=== PATIENT | female | born 1980 | race Caucasian/White ===

== ENCOUNTER → 2022-07-13 12:58 | Outpatient (BNVA) | payer OTHER, SELFPAY | PROVIDERS: PCP Physician Assistant; Visit Provider Nurse Practitioner Family | DX: M54.2 Cervicalgia (principal); M25.512 Pain in left shoulder; G43.709 Chronic migraine without aura, not intractable, without status migrainosus; M79.7 Fibromyalgia; E53.8 Deficiency of other specified B group vitamins; F31.9 Bipolar disorder, unspecified; F17.200 Nicotine dependence, unspecified, uncomplicated | CPT/HCPCS: 99202 ==

== ENCOUNTER 2023-03-14 07:57 | Outpatient (AMB) | payer MEDICAID, SELFPAY ==
--- NOTE | 2023-03-14 08:01 | A.OFFVIS_ITS ---
Intake Vital Signs 03/14/23 08:06 Height 5 ft 5 in Weight 175 lb BMI 29.1 BP 106/88 Blood Pressure Location Rt brachial Position Sitting Pulse 81 Pulse Source Pulse Oximeter Pulse Oximetry (%) 98 Oxygen Delivery Method Room Air Intake Visit Reasons: f/u appt for re-occurring migraines-Confirmed Intake Note: Patient presents for follow up migraines. Patient states The headaches used to come and go fast but now I get them all the time and they last very long and I cant get rid of them, I have no medications. Bobbin Drier Required: Yes Allergies No Known Allergies Allergy (Verified 03/14/23 08:03) Medication List - Last Reconciled 03/14/23 by KALA Saez baclofen 10 mg PO BEDTIME 30 days bupropion HCl 150 mg PO QAM ibuprofen 600 mg PO TID PRN levonorgestrel (Liletta) 0 device intrauterine magnesium oxide 400 mg PO BEDTIME 30 days omeprazole 20 mg PO QAM prazosin 3 mg PO BEDTIME riboflavin (vitamin B2) 400 mg PO DAILY 30 days risperidone 2 mg PO QPM sumatriptan succinate 50 - 100 mg orally at onset of headache, may repeat in 2 hrs PRN; max 2 tabs per day or 4 tabs/week (may take with Ibuprofen) 30 days topiramate 25 mg PO BID trazodone 100 mg PO BEDTIME HPI HPI Comments History of Present Illness Details 42-yr-old female presents for f/u visit. In October, pt underwent a left shoulder rotator cuff repair. Pt reports she has had an increase in her usual migraine- was occurring once or twice a week, but now occurring almost every other day to every day. She states she has run out of all her migraine medication. She states Topiramate- was ineffective and not tolerated. Reviewed Mikey Palomares DISPLAY SCREEN FABRICATOR's notes from 2019- pt was tried on Gabapentin- ineffective. COUNT INCLUDES THE [facility] Medical History (Updated 07/13/22 @ 16:59 by KALA Saez) Osteoarthritis of knees, bilateral Vitamin B 12 deficiency PTSD (post-traumatic stress disorder) History of Helicobacter pylori infection Tendonitis of left rotator cuff Alopecia PRINCE positive Fibromyalgia Bipolar 1 disorder Depression Surgical History (Updated 03/14/23 @ 08:05 by HARIS Hayward) H/O shoulder surgery S/P laparoscopic sleeve gastrectomy Social History Alcohol intake: never Patient Tobacco Use Status: Current everyday Tobacco user Review of Systems Const All systems reviewed & are unremarkable except as noted in HPI and below Physical Exam Vital Signs: Last Vital Signs Pulse 81 03/14/23 08:06 BP 106/88 03/14/23 08:06 Pulse Ox 98 03/14/23 08:06 Oxygen Delivery Method Room Air 03/14/23 08:06 BMI result Body Mass Index 29.1 Const General: cooperative and no acute distress Orientation/consciousness: patient oriented x3 HEENT Head: Yes normocephalic Resp Effort & Inspection: normal respiratory effort and able to speak in complete sentences Neuro General: patient oriented x3, gait normal and CN's II-XI intact bilaterally Cognition (Neuro): normal cognition Motor exam (neuro): 5/5 motor strength present throughout Psych Appearance: grossly normal Mental Status: mental status grossly normal Speech and movement: Normal speech and movement present Affect: normal affect Attitude: cooperative Thought process: Normal thought process present Thought content: Normal thought content present Insight: Good insight present (Psych) Judgement: Good judgement present (Psych) Assessment & Plan Assessment & Plan (1) Chronic migraine without aura: Code(s): G43.709 - Chronic migraine without aura, not intractable, without status migrainosus (2) Cervicalgia: Code(s): M54.2 - Cervicalgia Plan For overall headache management: Track headaches and response to medications. ? For acute headache treatment: Resume Sumatriptan. May adjunct w/ Ibuprofen 600mg. May use Baclofen 10mg qhs prn headache/neck pain Previous acute migraine medication trials: Unsure Acute migraine medication contraindications: Unsure ? For headache prevention medication: Resume Riboflavin 400mg qam Resume Magnesium 400mg qhs Stop Topiramate. Trial low dose Propranolol 10mg bid- hold for lightheadedness. Previous migraine prevention medication trials: Gabapentin- ineffective, Topiramate- ineffective and not tolerated. Migraine prevention medication contraindications: TCAs/antidepressants d/t b ipolar dx Future considerations- CGRP MaB, ? f/u in 2-3 months or sooner prn. Medications: New propranolol hold for lightheadedness 10 mg PO BID 30 days 60 tabs 1RF Refilled magnesium oxide may hold for loose stools 400 mg PO BEDTIME 30 days 30 tabs 6RF sumatriptan succinate (0.5 - 1 x 100 mg) 50 - 100 mg orally at onset of headache, may repeat in 2 hrs PRN; max 2 tabs per day or 4 tabs/week (may take with Ibuprofen) 30 days 12 tabs 6RF migraine headache riboflavin (vitamin B2) 400 mg PO DAILY 30 days 30 tabs 6RF Coding Level of Care Code Est Pt Level 4 (32598) Diagnoses Chronic migraine without aura G43.709 Cervicalgia M54.2
[2023-03-14 08:06] VITALS: BP 106/88; PULSE 81; O2SAT 98; BMI 29.1
== END 2023-03-14 08:41 | disposition home or self-care (01) ==
PROVIDERS: PCP Physician Assistant; Visit Provider Nurse Practitioner Family
DX: G43.709 Chronic migraine without aura, not intractable, without status migrainosus (principal); M54.2 Cervicalgia
CPT/HCPCS: 99214

== ENCOUNTER → 2023-03-14 07:57 | Outpatient (BNVA) | payer MEDICAID, SELFPAY | PROVIDERS: PCP Physician Assistant; Visit Provider Nurse Practitioner Family | DX: G43.709 Chronic migraine without aura, not intractable, without status migrainosus (principal); M54.2 Cervicalgia | CPT/HCPCS: 99212 ==

== ENCOUNTER 2023-06-17 14:39 | Emergency (ER) | payer MEDICAID, SELFPAY ==
--- NOTE | ~2023-06-17 | XR_ITS ---
EXAMINATION: XR SHOULDER, LEFT CLINICAL INFORMATION: Status post rotator cuff repair. COMPARISON: None available. TECHNIQUE: AP external rotation, Grashey, scapular Y, and axillary views of the left shoulder. FINDINGS: The bones and soft tissues are normal. No fracture. Glenohumeral and acromioclavicular alignment is anatomic with normal joint space. No abnormal soft tissue calcifications. XR/XR shoulder LT min 2V IMPRESSION: Unremarkable left shoulder exam
[2023-06-17 15:05] VITALS: BP 110/61; PULSE 75; RESP 18; TEMP 36.2; O2SAT 100; BMI 29.3
--- NOTE | 2023-06-17 15:05 | ED.EXTPRO ---
HPI - Extremity Problem General Chief complaint: Extremity Injury, Upper Stated complaint: l shoulder pain surgery 6 mos ago Time Seen by Provider: 06/17/23 15:28 Source: patient and family (daughter) Mode of arrival: ambulatory Limitations: no limitations History of Present Illness HPI Narrative: 42 year-old assigned female at with a history of left rotator cuff injury and repair arrives to emergency department with a complaint of left shoulder pain worsening over the last 3 days since 06/14/2023. She states that 6 months ago in December 2022 she had a rotator cuff repair done by Dr. Chance through [facility]. She was receiving physical therapy after the surgery until 1.5 months ago in April 2023. She states her physical therapist told her she no longer needed to be seen by PT. She describes shooting pain up her neck and down her arm. She denies numbness and tingling. She reports her muscle relaxer ran out a few days ago. She tried taking NSAIDs and acetaminophen, and using a heat pad with no relief. The pain improves with rest and immobilization. She states movement of her shoulder aggravates the pain. She denies any recent falls or traumatic incident. The patient denies fever, chills, night sweats, lightheadedness, dizziness, chest pain, palpitations, shortness of breath, trouble breathing, abdominal pain, nausea, vomiting, melena and hematochezia, changes in bowel movements, painful urination, urinary frequency, hematuria, and changes in urination. Onset (ago): day(s) (3 days) Pain Consistency: constant Location: left and upper extremity (left shoulder) Quality: other (shooting) Relieving factors: immobilization and rest Exacerbating factors: range of motion (pain on abduction with passive and active range of motion ) Associated symptoms: denies other symptoms Related Data Home Medications Medication Instructions Recorded Confirmed bupropion HCl 150 mg 24 hr tablet, 150 mg PO QAM 07/13/22 03/14/23 extended release ibuprofen 600 mg tablet 600 mg PO TID PRN pain 07/13/22 03/14/23 levonorgestrel 20.4 mcg/24 hrs (8 0 device intrauterine 07/13/22 03/14/23 yrs) 52 mg intrauterine device (Liletta) omeprazole 20 mg capsule,delayed 20 mg PO QAM 07/13/22 03/14/23 release prazosin 1 mg capsule 3 mg PO BEDTIME 07/13/22 03/14/23 risperidone 2 mg tablet 2 mg PO QPM 07/13/22 03/14/23 topiramate 25 mg tablet 25 mg PO BID 07/13/22 07/13/22 trazodone 100 mg tablet 100 mg PO BEDTIME 07/13/22 03/14/23 Previous Rx's Medication Instructions Recorded baclofen 10 mg tablet 10 mg PO BEDTIME 30 days #30 tabs 07/13/22 magnesium oxide 400 mg (241.3 mg 400 mg PO BEDTIME 30 days #30 tabs 03/14/23 magnesium) tablet propranolol 10 mg tablet 10 mg PO BID 30 days #60 tabs 03/14/23 riboflavin (vitamin B2) 400 mg 400 mg PO DAILY 30 days #30 tabs 03/14/23 tablet sumatriptan succinate 100 mg tablet 50 - 100 mg (0.5 - 1 x 100 mg) PO 03/14/23 .COMPLEX PRN migraine headache 30 days #12 tabs cyclobenzaprine 5 mg tablet 5 mg PO TID PRN muscle spasm 7 06/17/23 days #21 tabs Allergies Allergy/AdvReac Type Severity Reaction Status Date / Time No Known Allergies Allergy Verified 06/17/23 15:05 Review of Systems Constitutional: Constitutional: Reports no additional constitutional complaints, Denies chills, Denies fever(s) and Denies night sweats Eyes: Eyes: Reports no additional eye complaints, Denies blurry vision, Denies change in vision, Denies diplopia, Denies eye discharge, Denies loss of vision and Denies eye pain ENT: Denies dizziness Cardiovascular: Cardiovascular: Reports no additional cardiovascular complaints, Denies chest pain, Denies lightheadedness, Denies Loss of Consciousness and Denies dyspnea Respiratory: Respiratory: Reports no additional respiratory complaints and Denies dyspnea Gastrointestinal: Gastrointestinal: Reports no additional gastrointestinal complaints, Denies abdominal pain, Denies melena, Denies hematochezia, Denies change in bowel habits and Denies change in stool character Genitourinary: Genitourinary: Denies hematuria, Denies urinary frequency, Denies dysuria, Denies urinary incontinence, Denies urinary hesitancy and Denies urinary urgency Musculoskeletal: Musculoskeletal: Reports no additional musculoskeletal complaints, Denies numbness and Denies tingling Comments: left shoulder pain Neurologic: Denies dizziness, Denies loss of vision, Denies numbness and Denies tingling Psychiatric: Psychiatric: Reports no additional psychiatric complaints Endocrine: Endocrine: Reports no additional endocrine complaints Hematologic/Lymphatic: Hematologic/Lymphatic: Reports no additional hematologic/lymphatic complaints Allergic/Immunologic: Allergic/Immunologic: Reports no additional allergic/immunologic complaints PMFSH Past Medical History Attestation statement: The following information was validated with the patient. (patient's daughter validated all information) Source: old records reviewed, obtained from family (patient's daughter provided additional history and confirmed the history provided by the patient.) and nursing notes reviewed Onset Date is defined in the Problem List Problems that require an onset date and time if occurred within 24 hrs of arrival to the ED Aortic Dissection and Rupture; Neurologic impairment; Cardiopulmonary Arrest; Endotracheal Intubation; Insertion or Replacement of Mechanical Circulatory Assist Device Medical History Osteoarthritis of knees, bilateral Vitamin B 12 deficiency PTSD (post-traumatic stress disorder) History of Helicobacter pylori infection Tendonitis of left rotator cuff Alopecia PRINCE positive Fibromyalgia Bipolar 1 disorder Depression Surgical History H/O shoulder surgery S/P laparoscopic sleeve gastrectomy Social History Social History Alcohol intake: never Patient Tobacco Use Status: Current everyday Tobacco user Advance Directives: No Advance Directives Information Provided: Yes Physical Exam Vital Signs: Vital Signs: Last Vital Signs Temp 97.1 F 06/17/23 15:05 Pulse 75 06/17/23 15:05 Resp 18 06/17/23 15:05 BP 110/61 06/17/23 15:05 Pulse Ox 100 06/17/23 15:05 O2 Del Method Room Air 06/17/23 15:05 BMI result Body Mass Index 29.3 Const: General: cooperative, no acute distress, alert and awake Nutritional Appearance: well nourished Orientation/consciousness: patient oriented x3 Limitations: no limitations HEENT: Head: Yes normal to inspection and Yes atraumatic Ears: hearing grossly normal bilaterally and external ears normal General nose exam: Normal external nose present, no nasal discharge noted and no epistaxis Face and sinus: Yes normal facial exam, No abrasion and No laceration Mouth: Normal oral and palatal mucosa present, no drooling and no muffled voice Eyes: General: appearance normal, both eyes and all related structures Periorbital: periorbital findings normal Eyelids: Yes eyelids normal Conjunctivae: conjunctivae normal Pupils: Equal, round and reactive pupils present EOM: EOMs intact bilaterally Neck: Neck: Yes normal visual inspection, Yes full ROM and Yes no lymphadenopathy Chest: Chest palpation & inspection: normal inspection of the chest Resp: Effort & Inspection: normal respiratory effort and able to speak in complete sentences GI: Inspection: Yes normal to inspection Neuro: General: patient oriented x3 and moves all extremities Cranial nerves: Yes Equal, round and reactive pupils present Cognition (Neuro): normal cognition Motor exam (neuro): 5/5 motor strength present throughout Sensory Exam: Normal double simultaneous stimulation for sensation Coordination: [id number] test normal Extrem: Other: pain with left shoulder ROM General: Yes normal to inspection and Yes capillary refill normal Psych: Appearance: grossly normal Mental Status: mental status grossly normal Affect: normal affect Attitude: cooperative Thought process: Normal thought process present Thought content: Normal thought content present Insight: Good insight present (Psych) Course Course Course Narrative: RME:?42 yo female w/ hx of bipolar 1 disorder, migraine w/o aura, cervicalgia, rotator cuff tear s/p surgical repair 7 mo ago here with left shoulder pain. Tried contacting [facility] orthopedic surgeon who stated that the pain was likely d/t not being in PT for a while. has been taking pain medication at home however cannot recall the name. no numbness/tingling/weakness of LUE. plan for xrays Full HPI, ROS and PE to be performed by the primary ED provider. Medications Administered Discontinued Medications Generic Name Dose Route Start Last Admin Trade Name Freq PRN Reason Stop Dose Admin Cyclobenzaprine HCl 5 mg 06/17/23 16:38 06/17/23 17:08 Cyclobenzaprine Hcl 5 Mg Tablet PO 06/17/23 16:39 5 mg ONCE ONE Administration Ketorolac Tromethamine 15 mg 06/17/23 16:38 06/17/23 17:08 Ketorolac Tromethamine 15 Mg/Ml Vial IM 06/17/23 16:39 15 mg ONCE ONE Administration Medical Decision Making Medical Decision Making MDM Narrative: Patient is a 42 year old assigned female at with a history of left rotator cuff surgery presenting to the emergency department today with left shoulder pain. Patient's physical exam was as noted in the physical exam portion of this note. Patient's left shoulder x-ray showed no acute process. I explained my physical exam findings as well as all test results to the patient. I answered all questions asked by the patient and the patient's daughter. I stressed the importance of the patient taking her medication as prescribed. I stressed the importance of the patient following up with her primary care provider and her orthopedic surgeon. I stressed the importance of the patient returning to the emergency department immediately if her symptoms were to worsen or if she were to develop any dizziness, shortness of breath, difficulty breathing, chest pain, blurry vision, loss of vision, nausea, vomiting, abdominal pain, fever, chills, back pain, or any other complaints. Patient and the patient's daughter verbalized agreement and understanding with this treatment plan and discharge. Differential Diagnosis Differential Diagnoses: The differential diagnosis associated with the presentation includes Shoulder pain Shoulder strain Cervical radiculopathy Rotator cuff injury Admission/Observation Consideration of admission/observation: Escalation of care including admission/observation considered Patient would have been admitted to the hospital had her work up had any findings where hospital admission was appropriate and her clinical presentation warranted hospital admission. Independent Interpretation I performed an independent interpretation of an: Plain X-Ray Interpretation: My interpretation is in agreement with the radiologist's impression of this imaging study. EXAMINATION: XR SHOULDER, LEFT CLINICAL INFORMATION: Status post rotator cuff repair. COMPARISON: None available. TECHNIQUE: AP external rotation, Grashey, scapular Y, and axillary views of the left shoulder. FINDINGS: The bones and soft tissues are normal. No fracture. Glenohumeral and acromioclavicular alignment is anatomic with normal joint space. No abnormal soft tissue calcifications. XR/XR shoulder LT min 2V IMPRESSION: Unremarkable left shoulder exam Dictated By: Sanford Gonzales MD Signed By: Electronically signed by Sanford Gonzales MD 06/17/23 0804 Radiology Impression Discussion of test interpretation with radiology: I have reviewed the radiologist's reading. Independent Historian Clinical information obtained from an independent historian. History obtained from or confirmed by: Other (patient's daughter provided additional history and confirmed the history provided by the patient.) Prescription Management I considered prescription management with: Pain Medication (patient prescribed pain medication.) Discharge Plan Discharge Clinical Impression: Cervical radiculopathy, Acute shoulder pain Patient Disposition: Home, Self-Care Instructions: Cervical Radiculopathy (ED), Shoulder Pain (ED) Additional Instructions: Follow up with your primary care provider and the orthopedic surgeon who did your surgery. Return to the emergency department immediately if your symptoms worsen or if you develop any dizziness, shortness of breath, difficulty breathing, chest pain, blurry vision, loss of vision, nausea, vomiting, abdominal pain, fever, chills, back pain, or any other complaints. Prescriptions: New cyclobenzaprine 5 mg tablet 5 mg PO TID PRN (Reason: muscle spasm) 7 Days Qty: 21 0RF No Action omeprazole 20 mg capsule,delayed release(DR/EC) 20 mg PO QAM bupropion HCl 150 mg tablet extended release 24 hr 150 mg PO QAM trazodone 100 mg tablet 100 mg PO BEDTIME risperidone 2 mg tablet 2 mg PO QPM topiramate 25 mg tablet 25 mg PO BID Liletta 20.4 mcg/24 hrs (8 yrs) 52 mg intrauterine device 0 device intrauterine prazosin 1 mg capsule 3 mg PO BEDTIME ibuprofen 600 mg tablet 600 mg PO TID PRN (Reason: pain) baclofen 10 mg tablet 10 mg PO BEDTIME 30 Days Qty: 30 3RF sumatriptan succinate 100 mg tablet 50 - 100 mg PO .COMPLEX PRN (Reason: migraine headache) 30 Days Qty: 12 6RF Rx Instructions: 50 - 100 mg orally at onset of headache, may repeat in 2 hrs PRN; max 2 tabs per day or 4 tabs/week (may take with Ibuprofen) riboflavin (vitamin B2) 400 mg tablet 400 mg PO DAILY 30 Days Qty: 30 6RF magnesium oxide 400 mg (241.3 mg magnesium) tablet 400 mg PO BEDTIME 30 Days Qty: 30 6RF Rx Instructions: may hold for loose stools propranolol 10 mg tablet 10 mg PO BID 30 Days Qty: 60 1RF Rx Instructions: hold for lightheadedness Referrals: Mady Ca PA-C [Primary Care Provider] - Interventions: ED Discharge Assessment Last Done: 06/17/23 17:17 Discharge Date/Time: 06/17/23 17:18 Print Language: Greek
[2023-06-17] MEDS: Cyclobenzaprine HCl 5 MG TABLET PO (17:08)
[2023-06-17] MEDS: Ketorolac Tromethamine 15 MG/ML VIAL IM (17:08)
== END 2023-06-17 17:18 | disposition home or self-care (01) ==
PROVIDERS: Emergency Provider Emergency Medicine; PCP Physician Assistant
DX: M54.12 Radiculopathy, cervical region (principal); M25.512 Pain in left shoulder
CPT/HCPCS: 73030; 96372; 99283; 99284; J1885

== ENCOUNTER 2023-06-25 10:25 | Outpatient (AMB) | payer MEDICAID, SELFPAY ==
--- NOTE | 2023-06-25 10:39 | MHC.OFFVIS ---
Intake Vital Signs 06/25/23 10:45 Height 5 ft 3 in Weight 186 lb 4 oz BMI 33.0 BP 110/74 Pulse 70 Pulse Source Pulse Oximeter Pulse Oximetry (%) 99 Oxygen Delivery Method Room Air Intake Visit Reasons: 3 mo f/u - Migraine - LVM Intake Note: Patient presents for three month F/U for migraines. Medication is not working Allergies Pork/Porcine Containing Products Adverse Reaction (Unverified 06/25/23 11:20) [facility] Medication List - Last Reconciled 06/25/23 by KALA Saez baclofen 10 mg PO BEDTIME 30 days bupropion HCl 150 mg PO QAM cyclobenzaprine 5 mg PO TID PRN 7 days ibuprofen 600 mg PO TID PRN levonorgestrel (Liletta) 0 device intrauterine magnesium oxide 400 mg PO BEDTIME 30 days omeprazole 20 mg PO QAM prazosin 3 mg PO BEDTIME propranolol 10 mg PO BID 30 days riboflavin (vitamin B2) 400 mg PO DAILY 30 days risperidone 2 mg PO QPM sumatriptan succinate 50 - 100 mg orally at onset of headache, may repeat in 2 hrs PRN; max 2 tabs per day or 4 tabs/week (may take with Ibuprofen) 30 days topiramate 25 mg PO BID trazodone 100 mg PO BEDTIME HPI HPI Comments History of Present Illness Details 42-yr-old female presents for f/u visit, accompanied by her dtr Pt denies any significant interval medical changes. Although continues to have bothersome shoulder pain. She has started Mag, B2, and Propranolol 10mg bid. She has not noticed any decrease in her migraine severity or frequency. Now having 10 headaches out of the last 14 days. Sumatriptan- only helps for a little while, but tolerates well. She is not noticing any lightheadedness, however BP is 110/74 today. Baseline headache characteristics: Headache starts with a few minutes of lightheaded and internal spinning dizziness. f/b Severe throbbing/needles/sharp LALA, starting in left back of head, moves up into the left restorationist, and into left face and eye, can also move into right face a/w Photophobia, phonophobia, rarely nausea/vomiting, brain fog, left neck to shoulder pain, watery/red/painful eyes, generally weak (w/o focal weakness). [facility] Medical History Osteoarthritis of knees, bilateral Vitamin B 12 deficiency PTSD (post-traumatic stress disorder) History of Helicobacter pylori infection Tendonitis of left rotator cuff Alopecia PRINCE positive Fibromyalgia Bipolar 1 disorder Depression Surgical History H/O shoulder surgery S/P laparoscopic sleeve gastrectomy Social History Alcohol intake: never Patient Tobacco Use Status: Current everyday Tobacco user Physical Exam Vital Signs: Last Vital Signs Pulse 70 06/25/23 10:45 BP 110/74 06/25/23 10:45 Pulse Ox 99 06/25/23 10:45 Oxygen Delivery Method Room Air 06/25/23 10:45 BMI result Body Mass Index 33.0 Const General: cooperative and no acute distress Orientation/consciousness: patient oriented x3 Resp Effort & Inspection: normal respiratory effort and able to speak in complete sentences Neuro General: patient oriented x3 Cranial nerves: Yes CN's II-XII intact bilaterally Cognition (Neuro): normal cognition Psych Appearance: grossly normal Mental Status: mental status grossly normal Speech and movement: Normal speech and movement present Affect: normal affect Attitude: cooperative Assessment & Plan Assessment & Plan (1) Chronic migraine without aura: Code(s): G43.709 - Chronic migraine without aura, not intractable, without status migrainosus (2) Cervicalgia: Code(s): M54.2 - Cervicalgia Plan For overall headache management: Track headaches and response to medications. ? For acute headache treatment: Hold Sumatriptan- not fully effective. Trial Rizatriptan prn. May adjunct w/ Ibuprofen 600mg. Baclofen 10mg qhs prn headache/neck pain Previous acute migraine medication trials: Sumatriptan- not fully effective. Acute migraine medication contraindications: Nurtec ODT- contains pork. ? For headache prevention medication: Riboflavin 400mg qam Magnesium 400mg qhs Increase Propranolol from 10mg bid to 20mg bid- hold for lightheadedness. Start Emgality 240mg sc x's 1 then 120mg q month. She will likely need injection training. Previous migraine prevention medication trials: Gabapentin- ineffective, Topiramate- ineffective and not tolerated. Migraine prevention medication contraindications: TCAs/antidepressants d/t bipolar dx. Future considerations- CGRP MaB, Propranolol ER d/t contains pork. ? f/u in 3 months or sooner prn. Medications: New galcanezumab-gnlm (Emgality Pen) Loading dose: 120mg x's 2 (total 240mg), then maintenance dose: 120mg sc q month. 240 mg (2 mL) subcut ONCE 30 days 2 mL 0RF rizatriptan max 2 tabs per day or 4 tabs per week 5 - 10 mg (0.5 - 1 x 10 mg) PO Q2H 21 days PRN 12 tabs 3RF migraine headache propranolol 20 mg PO BID 30 days 60 tabs 3RF Discontinued propranolol hold for lightheadedness Discontinued Reason: Doctor's Order 10 mg PO BID 30 days 60 tabs 1RF Coding Level of Care Code Est Pt Level 4 (90676) Diagnoses Chronic migraine without aura G43.709 Cervicalgia M54.2
[2023-06-25 10:45] VITALS: BP 110/74; PULSE 70; O2SAT 99; BMI 33.0
== END 2023-06-25 11:28 | disposition home or self-care (01) ==
PROVIDERS: PCP Physician Assistant; Visit Provider Nurse Practitioner Family
DX: G43.709 Chronic migraine without aura, not intractable, without status migrainosus (principal); M54.2 Cervicalgia
CPT/HCPCS: 99214

== ENCOUNTER → 2023-06-25 10:25 | Outpatient (BNVA) | payer MEDICAID, SELFPAY | PROVIDERS: PCP Physician Assistant; Visit Provider Nurse Practitioner Family | DX: G43.709 Chronic migraine without aura, not intractable, without status migrainosus (principal); M54.2 Cervicalgia | CPT/HCPCS: 99212 ==

== ENCOUNTER 2023-09-03 21:56 | Emergency (ER) | payer MEDICAID, SELFPAY ==
--- NOTE | 2023-09-03 | ECG_ITS ---
Test Reason : CHEST PAIN Blood Pressure : / mmHG Vent. Rate : 079 BPM Atrial Rate : 079 BPM P-R Int : 140 ms QRS Dur : 076 ms QT Int : 362 ms P-R-T Axes : 052 013 046 degrees QTc Int : 415 ms Normal sinus rhythm Normal ECG No previous ECGs available Referred By: Generic ED Physician Electronically Signed By:STEPHANIE WINTER MD
[2023-09-03 22:20] VITALS: BP 113/70; PULSE 83; RESP 18; TEMP 37.2; O2SAT 100; BMI 33.3
[2023-09-03 22:35] LABS: MANUAL DIFF FLAG NO
[2023-09-03 22:42] LABS: Basophils Absolute Auto 0.1 X10*3/uL (0.0-0.2); Basophils Percent Auto 0.6 % (0-2); Eosinophils Absolute Auto 0.1 X10*3/uL (0.0-0.4); Eosinophils Percent Auto 1.4 % (0-4); Hematocrit 40.7 % (37.0-47.0); Hemoglobin 13.7 g/dl (12.0-16.0); Imm Gran Abs Auto 0.02 X10*3/uL (0.00-0.03); Imm Gran Pct Auto 0.2 % (0.0-0.4); Lymphocytes Absolute Auto 2.9 X10*3/uL (1.2-4.9); Lymphocytes Percent Auto 35.3 % (20-40); Mean Corpuscular HGB Conc 33.7 g/dl (31.0-35.0); Mean Corpuscular Hemoglobin 29.9 pg (27.0-33.0); Mean Corpuscular Volume 88.9 fL (80.0-98.0); Mean Platelet Volume 10.2 fL (9.4-12.3); Monocytes Absolute Auto 0.6 X10*3/uL (0.1-1.2); Monocytes Percent Auto 7.1 % (2-11); Neutrophils Absolute Auto 4.6 x10*3/uL (2.0-8.3); Neutrophils Percent Auto 55.4 % (45-73); Platelet Count 251 X10*3/uL (160-400); Red Blood Count 4.58 X10*6/uL (4.20-5.50); Red Cell Distribution Width 12.2 % (11.0-16.0); White Blood Count 8.3 X10*3/uL (4.8-10.8)
[2023-09-03 22:50] LABS: Alanine Aminotransferase 10 U/L (0-31); Albumin Level 4.3 g/dL (3.5-5.0); Alkaline Phosphatase 83 U/L (39-117); Anion Gap 12 (12-20); Aspartate Amino Transferase 16 U/L (5-31); Bilirubin Total 1.2 mg/dL (0.0-1.0); Blood Urea Nitrogen 8 mg/dL (9-16); Calcium 9.5 mg/dL (8.4-10.2); Carbon Dioxide 24 mmol/L (22-29); Chloride 110 mmol/L (96-108); Creatinine Clr Calc Pharmacy 116.2; Estimated Glomerular Filt Rate > 60; Glucose Random 91 mg/dL (60-115); Sodium 142 mmol/L (135-145); Total Protein 7.4 g/dL (6.5-8.0)
[2023-09-03 22:59] LABS: Troponin-I High Sensitivity < 2.7 ng/L (<3.5-17.0)
== END 2023-09-04 01:10 | disposition left against medical advice (07) ==
PROVIDERS: Emergency Provider Emergency Medicine; PCP Physician Assistant
DX: R07.9 Chest pain, unspecified (principal); R06.02 Shortness of breath; R53.1 Weakness
CPT/HCPCS: 36415; 80053; 84484; 85025; 93005; 99283

== ENCOUNTER → 2023-09-03 22:02 | Outpatient (BNV) | payer MEDICAID, SELFPAY | PROVIDERS: Emergency Provider Emergency Medicine; PCP Physician Assistant; Visit Provider Internal Medicine Cardiovascular Disease | DX: R07.9 Chest pain, unspecified (principal) | CPT/HCPCS: 93010 ==

== ENCOUNTER 2023-09-27 11:16 | Outpatient (AMB) | payer MEDICAID, SELFPAY ==
--- NOTE | 2023-09-27 11:25 | A.OFFVIS_ITS ---
Vital Signs 09/27/23 11:27 Height 5 ft 1 in BP 130/78 Blood Pressure Location Rt brachial Position Sitting Pulse 78 Pulse Source Pulse Oximeter Pulse Oximetry (%) 98 Oxygen Delivery Method Room Air Intake Visit Reasons: 3 mo f/u/ confirmed Intake Note: Patient presents for 3 month follow up.. patient following up for migraines injection has not been working has only had 2 injections Allergies Pork/Porcine Containing Products Adverse Reaction (Unverified 09/27/23 11:30) bahai reason Medication List - Last Reconciled 09/27/23 by KALA Saez atogepant 30 mg PO DAILY 30 days baclofen 10 mg PO BEDTIME 30 days bupropion HCl XL 150 mg PO QAM cyclobenzaprine 5 mg PO TID PRN 7 days ibuprofen 600 mg PO TID PRN levonorgestrel (Liletta) 0 device intrauterine magnesium oxide 400 mg PO BEDTIME 30 days omeprazole 20 mg PO QAM prazosin 3 mg PO BEDTIME propranolol 20 mg PO BID 30 days riboflavin (vitamin B2) 400 mg PO DAILY 30 days risperidone 2 mg PO QPM rizatriptan 5 - 10 mg (0.5 - 1 x 10 mg) PO Q2H PRN 30 days sumatriptan succinate 50 - 100 mg orally at onset of headache, may repeat in 2 hrs PRN; max 2 tabs per day or 4 tabs/week (may take with Ibuprofen) 30 days trazodone 100 mg PO BEDTIME HPI Comments Details: 43-yr-old female presents for f/u visit. [place]ese electronic train control technician, Dinorah Zuleta [id number], assists w/ translation. Pt denies any significant interval medical changes. Pt endorses the following interval medical history changes: [] She took the loading dose of Emgality 240mg x's 1. Pt reports 2 days later, she had worsening headache for a long time because she did not have any medications . Pt clarified that this means that she never received the Rizatriptan and the increase in the Propranolol was not helpful. Currently, she is having an increase in headcahes a/w dizziness and blurry vision, now having an almost daily migraine. She is prone to constipation. Baseline headache characteristics: Severe, Starts in left back of head, moves up into the left gnosticism, and into left face and eye, can also move into right face. The pain is throbbing needles, sharp pains a/w headache starts with a few minutes of lightheaded and internal spinning dizziness. Photophobia, phonophobia, rarely nausea/vomiting, brain fog, left neck to shoulder pain, watery/red/painful eyes, generally weak. [facility] Medical History Osteoarthritis of knees, bilateral Vitamin B 12 deficiency PTSD (post-traumatic stress disorder) History of Helicobacter pylori infection Tendonitis of left rotator cuff Alopecia PRINCE positive Fibromyalgia Bipolar 1 disorder Depression Surgical History H/O shoulder surgery S/P laparoscopic sleeve gastrectomy Social History Alcohol intake: never Patient Tobacco Use Status: Current everyday Tobacco user Physical Exam Vital Signs: Last Vital Signs Pulse 78 09/27/23 11:27 BP 130/78 09/27/23 11:27 Pulse Ox 98 09/27/23 11:27 Oxygen Delivery Method Room Air 09/27/23 11:27 Const General: cooperative and no acute distress Orientation/consciousness: patient oriented x3 Resp Effort & Inspection: normal respiratory effort and able to speak in complete sentences Neuro General: patient oriented x3 Cranial nerves: Yes CN's II-XII intact bilaterally Cognition (Neuro): normal cognition Psych Appearance: grossly normal Mental Status: mental status grossly normal Speech and movement: Normal speech and movement present Affect: normal affect Attitude: cooperative Assessment & Plan Assessment & Plan (1) Worsening headaches: Code(s): R51.9 - Headache, unspecified Category: Medical (2) Dizziness: Code(s): R42 - Dizziness and giddiness Category: Medical (3) Chronic migraine without aura: Code(s): G43.709 - Chronic migraine without aura, not intractable, without status migrainosus Category: Medical (4) Cervicalgia: Code(s): M54.2 - Cervicalgia Category: Medical Plan Pt advsied to undergo brain MRI w/wo- d/t worsening headaches and dizziness. For overall headache management: Track headaches and response to medications. ? For acute headache treatment: Hold Sumatriptan- not fully effective. Again trial Rizatriptan prn. May adjunct w/ Ibuprofen 600mg. Baclofen 10mg qhs prn headache/neck pain prn Previous acute migraine medication trials: Sumatriptan- not fully effective. Acute migraine medication contraindications: Nurtec ODT- contains pork. ? For headache prevention medication: Riboflavin 400mg qam Magnesium 400mg qhs Continue Propranolol 20mg bid- cannot increase further d/t lightheadedness. Stop Emgality- ineffective- pt felt it increased headaches. Pt is not interested in trying alternate migarine injectable CGRP MaB. Start Qulipta 30mg qhs- monitor for constipation. Stop Topiramate- was suing prn. Previous migraine prevention medication trials: Gabapentin- ineffective, Topiramate- ineffective and not tolerated. Migraine prevention medication contraindications: TCAs/antidepressants d/t bipolar dx. Propranolol ER d/t contains pork ? f/u in 6 months or sooner prn. Orders: Orders MR head/brain wo/w con Today R42 - Dizziness and giddiness, R51.9 - Headache, unspecified Medications: New atogepant 30 mg PO DAILY 30 tabs 6RF 30 days atogepant 30 mg PO DAILY 30 days 30 tabs 6RF Changed From rizatriptan max 2 tabs per day or 4 tabs per week 5 - 10 mg (0.5 - 1 x 10 mg) PO Q2H 21 days PRN 12 tabs 3RF migraine headache To rizatriptan max 2 tabs per day or 4 tabs per week 5 - 10 mg (0.5 - 1 x 10 mg) PO Q2H 30 days PRN 14 tabs 3RF migraine headache Refilled riboflavin (vitamin B2) 400 mg PO DAILY 30 tabs 6RF 30 days magnesium oxide may hold for loose stools 400 mg PO BEDTIME 30 tabs 6RF 30 days magnesium oxide may hold for loose stools 400 mg PO BEDTIME 30 days 30 tabs 6RF riboflavin (vitamin B2) 400 mg PO DAILY 30 days 30 tabs 6RF propranolol 20 mg PO BID 60 tabs 6RF 30 days rizatriptan max 2 tabs per day or 4 tabs per week 5 - 10 mg (0.5 - 1 x 10 mg) PO Q2H PRN 14 tabs 3RF migraine headache 30 days Discontinued galcanezumab-gnlm (Emgality Pen) Loading dose: 120mg x's 2 (total 240mg), then maintenance dose: 120mg sc q month. Discontinued Reason: Doctor's Order 240 mg (2 mL) subcut ONCE 30 days 2 mL 0RF Coding Level of Care Code Est Pt Level 4 (49605) Diagnoses Worsening headaches R51.9 Dizziness R42 Chronic migraine without aura G43.709 Cervicalgia M54.2
[2023-09-27 11:27] VITALS: BP 130/78; PULSE 78; O2SAT 98
== END 2023-09-27 12:26 | disposition home or self-care (01) ==
PROVIDERS: PCP Physician Assistant; Visit Provider Nurse Practitioner Family
DX: R51.9 Headache, unspecified (principal); R42 Dizziness and giddiness; G43.709 Chronic migraine without aura, not intractable, without status migrainosus; M54.2 Cervicalgia
CPT/HCPCS: 99214

== ENCOUNTER → 2023-09-27 11:16 | Outpatient (BNVA) | payer MEDICAID, SELFPAY | PROVIDERS: PCP Physician Assistant; Visit Provider Nurse Practitioner Family | DX: G43.709 Chronic migraine without aura, not intractable, without status migrainosus (principal); R42 Dizziness and giddiness; M54.2 Cervicalgia; Z79.899 Other long term (current) drug therapy | CPT/HCPCS: 99212 ==

== ENCOUNTER 2024-04-10 10:55 | Outpatient (AMB) | payer MEDICAID, SELFPAY ==
[2024-04-10 11:06] VITALS: BP 110/82
--- NOTE | 2024-04-10 11:06 | A.OFFVIS_ITS ---
Vital Signs 04/10/24 11:06 Height 5 ft 1 in BP 110/82 Blood Pressure Location Rt brachial Position Sitting Intake Visit Reasons: Follow up Intake Note: Patient presents for follow up. patient has headaches everyday. Allergies Pork/Porcine Containing Products Adverse Reaction (Unverified 04/10/24 11:11) sabianist reason HPI Comments Details: 43 year old female h/o fibromyalgia presents for 3 months f/u Migraines. She was trialed on Emgality and the headaches were worse. She never did start Qulipta, was not aware it was aproved. She was trialed on Rizatriptan and it provided minor pain relief and she would like to try the Sumatriptan again. Today she reports her migraines are 2-3 per week, throbbing pulsating with woosh , sounds in both ears. The migraines start in back of the neck then migrate to the temporal area R>L. They last more than 3 hours per day, and pain-scale of 8/10, and has fatigue, snores, SOB, clautrophobia, sluggishness, in the morning She is having to tie something around her head, which helps but the migraine always come back. She is having auras, spots in her vision and flashing. She denies dizziness, vertigo, nausea and vomiting. Her eyes burn and tear with redness, ears are blocked, head feels full. [facility] Medical History Osteoarthritis of knees, bilateral Vitamin B 12 deficiency PTSD (post-traumatic stress disorder) History of Helicobacter pylori infection Tendonitis of left rotator cuff Alopecia PRINCE positive Fibromyalgia Bipolar 1 disorder Depression Surgical History H/O shoulder surgery S/P laparoscopic sleeve gastrectomy Social History Alcohol intake: never Patient Tobacco Use Status: Current everyday Tobacco user Review of Systems Const All systems reviewed & are unremarkable except as noted in HPI and below Physical Exam Vital Signs: Last Vital Signs BP 110/82 04/10/24 11:06 Const General: cooperative, comfortable and no acute distress Nutritional Appearance: obese Orientation/consciousness: patient oriented x3 HEENT Face and sinus: Yes face symmetric Mouth: tongue normal Eyes Pupils: Equal, round and reactive pupils present, Pupils normal by confrontation and Pupil accommodation reflex normal Neck Neck: Yes full ROM (Limited ROM to the R. / Flexion and extension ) and Yes supple Resp Effort & Inspection: normal respiratory effort and able to speak in complete sentences Neuro General: patient oriented x3 Cranial nerves: Yes CN's II-XII intact bilaterally, Yes Equal, round and reactive pupils present, Yes Midline tongue present, Yes Ability to bilaterally rotate head present (Limited ROM) and Yes Ability to bilaterally elevate shoulders present Motor exam (neuro): 5/5 motor strength present throughout Deep tendon reflexes (DTR's): Right triceps reflex intensity grade: 2+, Left triceps reflex intensity grade: 2+, Rt Biceps (C5, C6): 2+, Left biceps reflex intensity grade: 2+, Right brachioradialis reflex intensity grade: 2+, Left brachioradialis reflex intensity grade: 2+, Right patellar reflex intensity grade: 2+ and Left patellar reflex intensity grade: 2+ Assessment & Plan Assessment & Plan (1) Chronic migraine without aura: Code(s): G43.709 - Chronic migraine without aura, not intractable, without status migrainosus Category: Medical (2) Worsening headaches: Code(s): R51.9 - Headache, unspecified Category: Medical (3) Cervicalgia: Code(s): M54.2 - Cervicalgia Category: Medical (4) Acid reflux: Code(s): K21.9 - Gastro-esophageal reflux disease without esophagitis Category: Medical Qualifiers: Esophagitis presence: without esophagitis Qualified Code(s): K21.9 - Gastro-esophageal reflux disease without esophagitis Plan: Acid Reflux can continue to take Omeprazole 20mg PO daily in the morning. (5) Migraine with aura: Code(s): G43.109 - Migraine with aura, not intractable, without status migrainosus Category: Medical Qualifiers: Intractability: not intractable Status migrainosus presence: without status migrainosus Qualified Code(s): G43.109 - Migraine with aura, not intractable, without status migrainosus (6) Dizziness: Code(s): R42 - Dizziness and giddiness Category: Medical Plan PT advised to undergo- HST to assess for sleep apnea- as pt has fatigue, snoring, SOB, obesity. Brain MRI as ordered Apr 2024, for claustrophobia take 0.25mg PO alprazolam, prior to MRI. Pt advised to undergo brain MRI w/wo- d/t worsening headaches and dizziness. ? For overall headache management: Track headaches and response to medications. ? For acute headache treatment: Resume Sumatriptan. Hold Rizatriptan prn- not fully effective Baclofen 10mg qhs prn headache/neck pain prn Previous acute migraine medication trials: Sumatriptan- not fully effective. Rizatriptan- not fully effective. Acute migraine medication contraindications: Nurtec ODT- contains pork. ? For headache prevention medication: Riboflavin 400mg qam Magnesium 400mg qhs Continue Propranolol 20mg bid- cannot increase further d/t lightheadedness. Again start Qulipta 30mg qhs- monitor for constipation. Previous migraine prevention medication trials: Gabapentin- ineffective, Topiramate- ineffective and not tolerated. Emgality- ineffective- pt felt it increased headaches. Migraine prevention medication contraindications: TCAs/antidepressants d/t bipolar dx. Propranolol ER d/t contains pork. Pt is not interested in trying alternate migraine injectable CGRP MaB. ? ? f/u in 3 months or sooner prn. Pt seen by Jace SANDOVAL in coordination w/ myself KALA Saez- , I agree with the above documentation and plan. Orders: Orders RT home sleep study 04/10/24 Jace Dhillon PA-C G43.709 - Chronic migraine without aura, not intractable, without status migrainosus, R51.9 - Headache, unspecified Medications: New omeprazole 20 mg PO QAM 90 caps 3RF Acid Reflux Jace Dhillon PA-C K21.9 - Gastro-esophageal reflux disease without esophagitis, R42 - Dizziness and giddiness alprazolam 0.25 mg orally 1 tab 30 minutes prior to MRI, may repeat x's 1; 2 tabs 0RF 1 day KALA Saez Changed From sumatriptan succinate (0.5 - 1 x 100 mg) 50 - 100 mg orally at onset of headache, may repeat in 2 hrs PRN; max 2 tabs per day or 4 tabs/week (may take with Ibuprofen) 30 days 12 tabs 6RF migraine headache To sumatriptan succinate 50 - 100 mg orally at onset of headache, may repeat in 2 hrs PRN; max 2 tabs per day or 4 tabs/week (may take with Ibuprofen) 12 tabs 6RF migraine headache 30 days Subindiana Dhillon PA-C Refilled atogepant 30 mg PO DAILY 30 tabs 6RF 30 days Fabykristopher Conrad, [employer] MACHINE TENDER atogepant 30 mg PO DAILY 30 tabs 6RF 30 days Subhala ELVIS Dhillon Coding Level of Care Code Est Pt Level 4 (98147) Complex EM visit Add On G2211 Diagnoses Chronic migraine without aura G43.709 Worsening headaches R51.9 Cervicalgia M54.2 Gastroesophageal reflux disease without esophagitis K21.9 Esophagitis presence: without esophagitis Migraine with aura and without status migrainosus, not intractable G43.109 Intractability: not intractable Status migrainosus presence: without status migrainosus Dizziness R42
== END 2024-04-10 12:08 | disposition home or self-care (01) ==
PROVIDERS: PCP Physician Assistant; Visit Provider Nurse Practitioner Family
DX: G43.709 Chronic migraine without aura, not intractable, without status migrainosus (principal); R51.9 Headache, unspecified; M54.2 Cervicalgia; K21.9 Gastro-esophageal reflux disease without esophagitis; G43.109 Migraine with aura, not intractable, without status migrainosus; R42 Dizziness and giddiness
CPT/HCPCS: 99214

== ENCOUNTER → 2024-04-10 10:55 | Outpatient (BNVA) | payer MEDICAID, SELFPAY | PROVIDERS: PCP Physician Assistant; Visit Provider Nurse Practitioner Family | DX: G43.E09 Chronic migraine with aura, not intractable, without status migrainosus (principal); R42 Dizziness and giddiness; M79.7 Fibromyalgia; M54.2 Cervicalgia; K21.9 Gastro-esophageal reflux disease without esophagitis | CPT/HCPCS: 99212 ==

== ENCOUNTER 2024-04-17 19:41 | Outpatient (REF) | payer MEDICAID, SELFPAY | END 2024-04-17 19:42 | disposition home or self-care (01) | LOC: HO.MRI 19:41 | PROVIDERS: PCP Physician Assistant; Visit Provider Nurse Practitioner Family | DX: Z13.89 Encounter for screening for other disorder (principal) ==

== ENCOUNTER 2024-06-12 12:50 | Outpatient (AMB) | payer MEDICAID, SELFPAY ==
--- NOTE | 2024-06-12 12:55 | A.OFFVIS_ITS ---
Vital Signs 06/12/24 12:56 Height 5 ft 1 in Weight 191 lb BMI 36.1 Intake Visit Reasons: Follow up Intake Note: patient presents for follow up Allergies Pork/Porcine Containing Products Adverse Reaction (Unverified 06/12/24 13:01) religion reason Medication List - Last Reconciled 06/12/24 by KALA Saez alprazolam 0.25 mg orally 1 tab 30 minutes prior to MRI, may repeat x's 1; 1 day atogepant 30 mg PO DAILY 30 days baclofen 10 mg PO BEDTIME 30 days bupropion HCl XL 150 mg PO QAM cyclobenzaprine 5 mg PO TID PRN 7 days ibuprofen 600 mg PO TID PRN levonorgestrel (Liletta) 0 device intrauterine magnesium oxide 400 mg PO BEDTIME 30 days omeprazole 20 mg PO QAM prazosin 3 mg PO BEDTIME propranolol 20 mg PO BID 30 days riboflavin (vitamin B2) 400 mg PO DAILY 30 days risperidone 2 mg PO QPM rizatriptan 5 - 10 mg (0.5 - 1 x 10 mg) PO Q2H PRN 30 days sumatriptan succinate 50 - 100 mg orally at onset of headache, may repeat in 2 hrs PRN; max 2 tabs per day or 4 tabs/week (may take with Ibuprofen) 30 days trazodone 100 mg PO BEDTIME HPI Comments Details: 43 year old female presents for follow-up of migraine. She is accompanied by her daughter. She missed the sleep study as she was sick, and she would like to reschedule. Her Brain MRI was rescheduled d/t pt had panic attack d/t claustrophobia. She continues to have a daily headache. The headache is similar to her baseline headache, but now more intense the needle sensations are stronger moving down the left face or into both sides of her face. However, in the last 6 months, she has started to also feel her hear beating in both sides of her head- initially this was sporadic but occurs anytime she is about to have a headache, bending over, or worsens once she lays down. She has also started to see halos during her headaches about 1-1.5 months ago. The headache is worse at night or when she bends over. She is noticing more near vision difficulties. Last eye exam was 5 yrs ago. She has had about a 20 lb weight gain in the last year or so. She is having sleep difficulties- in part r/t shoulder pain- states right shoulder rotator cuff tear- will be referred back to [facility] ortho who repaired her left shoulder. She continues to have snoring, fragmented sleep, daytime sleepiness. She has not started Qulipta- though it is improves her at least 10/20/2024. She states her triptan works a little for about 30 minutes. Baseline headache characteristics: Severe, Starts in left back of head, moves up into the left oriental orthodox, and into left face and eye, can also move into right face. The pain is throbbing needles, sharp pains a/w headache starts with a few minutes of lightheaded and internal spinning dizziness. Photophobia, phonophobia, rarely nausea/vomiting, brain fog, left neck to shoulder pain, watery/red/painful eyes, generally weak. [facility] Medical History Osteoarthritis of knees, bilateral Vitamin B 12 deficiency PTSD (post-traumatic stress disorder) History of Helicobacter pylori infection Tendonitis of left rotator cuff Alopecia PRINCE positive Fibromyalgia Bipolar 1 disorder Depression Surgical History H/O shoulder surgery S/P laparoscopic sleeve gastrectomy Social History Alcohol intake: never Patient Tobacco Use Status: Current everyday Tobacco user Physical Exam Vital Signs: BMI result Body Mass Index 36.1 Const General: cooperative, comfortable and no acute distress Nutritional Appearance: obese Orientation/consciousness: patient oriented x3 HEENT Face and sinus: Yes face symmetric Eyes Pupils: Pupils normal by confrontation and Pupil accommodation reflex normal Neck Neck: Yes full ROM (Limited ROM to the R. / Flexion and extension ) and Yes supple Resp Effort & Inspection: normal respiratory effort and able to speak in complete sentences Neuro Other: Photophobia General: patient oriented x3 Cranial nerves: Yes CN's II-XII intact bilaterally Cognition (Neuro): normal cognition Motor exam (neuro): 5/5 motor strength present throughout Psych Appearance: grossly normal Mental Status: mental status grossly normal Speech and movement: Normal speech and movement present Affect: normal affect Attitude: cooperative Assessment & Plan Assessment & Plan (1) Chronic migraine without aura: Code(s): G43.709 - Chronic migraine without aura, not intractable, without status migrainosus Category: Medical (2) Worsening headaches: Code(s): R51.9 - Headache, unspecified Category: Medical (3) Cervicalgia: Code(s): M54.2 - Cervicalgia Category: Medical (4) Migraine with aura: Code(s): G43.109 - Migraine with aura, not intractable, without status migrainosus Category: Medical Qualifiers: Intractability: not intractable Status migrainosus presence: without status migrainosus Qualified Code(s): G43.109 - Migraine with aura, not intractable, without status migrainosus (5) Dizziness: Code(s): R42 - Dizziness and giddiness Category: Medical (6) Vision changes: Code(s): H53.9 - Unspecified visual disturbance Category: Medical Plan PT is advised to undergo- HST to assess for sleep apnea- as pt has fatigue, snoring, SOB, obesity. Brain MRI as ordered to assess for secondary etiologies of worsening headaches, vision changes, pulsatile tinnitus- such as IIH. We will refill order for alprazolam 0.25 mg 1-2 times prior to open MRI. Comprehensive ophthalmology exam to assess for onset of presbyopia versus secondary etiology of vision changes, such as papilledema. ? For overall headache management: Track headaches and response to medications. ? For acute headache treatment: Discontinue Sumatriptan and Rizatriptan prn- not fully effective. Trial eletriptan 40 mg tab at onset of migraine, may repeat x1 in 2 hours. Max 80 mg per day. Baclofen 10mg qhs prn headache/neck pain prn Previous acute migraine medication trials: Sumatriptan- not fully effective. Rizatriptan- not fully effective. Acute migraine medication contraindications: Nurtec ODT- contains pork. ? For headache prevention medication: Riboflavin 400mg qam Magnesium 400mg qhs After eye exam, retrial topiramate 50 mg tab- half-1 tab q.h.s. (patient had previously reported adverse effects, however today states it was just ineffective but was tolerated well). Note- topiramate 25 mg and topiramate capsule versions are contraindicated due to containing pork. Continue Propranolol 20mg bid- cannot increase further d/t lightheadedness. Again start Qulipta 30mg qhs- monitor for constipation. Previous migraine prevention medication trials: Gabapentin- ineffective, Topiramate- ineffective.. Emgality- ineffective- pt felt it increased headaches. Migraine prevention medication contraindications: TCAs/antidepressants d/t bipolar dx. Propranolol ER d/t contains pork. Pt is not interested in trying alternate migraine injectable CGRP MaB. ? Explained that Qulipta has been approved by her insurance. ?Written instructions given to patient. Contact information for ophthalmology exam given to patient's daughter. Will follow-up upon review of above and patient to follow-up in clinic in 3-6 months or sooner prn. Orders: Referrals Ophthalmology Referral H53.9 - Unspecified visual disturbance, R51.9 - Headache, unspecified Medications: New topiramate start after eye exam 25 - 50 mg (0.5 - 1 x 50 mg) PO BEDTIME 30 days 30 tabs 3RF eletriptan take 1 tab at onset of headache; if no relief, may repeat 1 tab after at least 2 hrs; max = 2 tabs/24 hrs orally PRN; 30 days 30 tabs 3RF migraine headache Refilled atogepant 30 mg PO DAILY 30 days 30 tabs 6RF alprazolam 0.25 mg orally 1 tab 30 minutes prior to MRI, may repeat x's 1; 1 day 2 tabs 0RF Discontinued sumatriptan succinate Discontinued Reason: Doctor's Order (0.5 - 1 x 100 mg) 50 - 100 mg orally at onset of headache, may repeat in 2 hrs PRN; max 2 tabs per day or 4 tabs/week (may take with Ibuprofen) 30 days 12 tabs 6RF migraine headache Coding Level of Care Code Est Pt Level 4 (10153) Diagnoses Chronic migraine without aura G43.709 Worsening headaches R51.9 Cervicalgia M54.2 Migraine with aura and without status migrainosus, not intractable G43.109 Intractability: not intractable Status migrainosus presence: without status migrainosus Dizziness R42 Vision changes H53.9
[2024-06-12 12:56] VITALS: BMI 36.1
== END 2024-06-12 14:05 | disposition home or self-care (01) ==
PROVIDERS: PCP Physician Assistant; Visit Provider Nurse Practitioner Family
DX: G43.709 Chronic migraine without aura, not intractable, without status migrainosus (principal); R51.9 Headache, unspecified; M54.2 Cervicalgia; G43.109 Migraine with aura, not intractable, without status migrainosus; R42 Dizziness and giddiness; H53.9 Unspecified visual disturbance
CPT/HCPCS: 99214

== ENCOUNTER → 2024-06-12 12:50 | Outpatient (BNVA) | payer MEDICAID, SELFPAY | PROVIDERS: PCP Physician Assistant; Visit Provider Nurse Practitioner Family | DX: G43.709 Chronic migraine without aura, not intractable, without status migrainosus (principal); G43.109 Migraine with aura, not intractable, without status migrainosus; H53.9 Unspecified visual disturbance; R42 Dizziness and giddiness; R51.9 Headache, unspecified; M54.2 Cervicalgia | CPT/HCPCS: 99212 ==